=== PATIENT | male | born 1965 ===

== ENCOUNTER 2019-05-07 19:07 | Emergency (ER) | payer OTHER ==
[2019-05-07] MEDS ORDERED: 0.9 % SODIUM CHLORIDE 1,000 ML IV ONE (19:32)
--- NOTE | 2019-05-07 19:40 | ED Physician Documentation ---
Male Genitourinary Problems - HISTORIAN Historian: patient - HPI Chief Complaint: Male Urogenital Problems Additional Information: 53 year old male presents with c/o urinary urgency, incontinence, hematuria that started 3 days ago. He states that he had chills 2 days ago- he drinks a lot of tea and water; he denies any cough, congestion, nausea, vomiting, or diarrhea. Onset: days ago Duration: continues in ED Context: denies: recent surgery Severity: mild - Associated Symptoms Problems Urinating: blood in urine, frequent urination, urgency w/ urination Penile Discharge Descripiton: denies: watery Testicular Pain: none Testicular Swelling: none Penile Pain: No Penile Swelling: No Flank Pain: none - Sexual History Sexual History: non-contributory - ROS CONST: fever, chills GI/: denies: nausea, vomiting MS/SKIN/LYMPH: none CVS/RESP: none EYES/ENT: none - PAST HX Past History: hypertension Cardiac Disease: none Surgeries/Procedures: none Immunizations: UTD Allergies/Adverse Reactions: Allergies Allergy/AdvReac Type Severity Reaction Status Date / Time No Known Drug Allergies Allergy Verified 05/07/19 20:46 Home Medications: Ambulatory Orders Medication Instructions Recorded Ciprofloxacin HCl [Cipro] 500 mg PO BID #20 tablet 05/07/19 - SOCIAL HX Smoking History: less than 1 pack/day Alcohol Use: occasionally Drug Use: none - FAMILY HX Family History: none - VITAL SIGNS Vital Signs: Vital Signs Temp Pulse Resp BP Pulse Ox 101.4 F H 110 H 22 144/83 94 05/07/19 19:31 05/07/19 19:31 05/07/19 19:31 05/07/19 19:31 05/07/19 19:31 - REVIEWED ASSESSMENTS Nursing Assessment Reviewed: Yes Vitals Reviewed: Yes Progress - Progress Progress: 21:40 patient is feeling much better. ED Results Lab/Radiology - Radiology Radiology Impressions: CT ABDOMEN PELVIS HISTORY; BLOOD IN URINE TECHNIQUE: Scans through the abdomen and pelvis were the obtained without contrast. FINDINGS: The lung parenchyma and cardiovascular structures in the chest included in the study are within normal limits. Liver, spleen, gallbladder, pancreas, adrenal glands and kidneys are normal. No renal stones or hydronephrosis is seen. No periaortic, periiliac, or inguinal adenopathy is noted. Ureters and bladder are normal. Prostatic hypertrophy is seen indenting the base of the bladder. Bowel content of the abdomen and pelvis including the appendix has a normal appearance. No inflammatory process seen. 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 IMPRESSION: Unremarkable abdomen and pelvic CT. Normal appendix. Prostate hypertrophy. No obstructive uropathy or inflammatory bowel disease. - Orders Orders: ED Orders Category Date Time Status Place IV Lock 1T Care 05/07/19 19:32 Active KIDNEY STONE PROTOCOL [CT ABD & PELVIS W/O CON] Stat Exams 05/07/19 Ordered CBC/PLATELET/DIFF Routine Lab 05/07/19 19:57 Received CMP Routine Lab 05/07/19 19:57 Received URINALYSIS Routine Lab 05/07/19 19:32 Ordered 0.9 % Sodium Chloride [Normal Saline] 1,000 ml Med 05/07/19 19:32 Discontinued IV Q1H CiproFLOXacin HCL [Cipro] Med 05/07/19 20:38 Discontinued 500 mg PO NOW ONE Male Genitourinary Problems - EXAM General Appearance: no acute distress, alert Abdomen: non-tender, no organomegaly EENT: eye inspection normal, ENT inspection normal, pharynx normal, FABIENNE Neck: nml inspection Respiratory: breath sounds normal CVS: heart sounds normal, equal pulses Back: non-tender Extremities: normal range of motion Neuro/Psych: oriented X3, CN's nml as tested, motor nml, sensation nml, mood/affect nml, cognition normal Skin: warm/dry, normal color Discharge Clincal Impression: Urinary tract infection Referrals: Primary Doctor,No [Primary Care Provider] - 2 Days Additional Instructions: Take antibiotic as directed (Cipro 500 mg by mouth twice a day for 10 days) Increase water intake (try to cut out tea and soda) Follow up with PCP this week for re-evaluation Condition: Good Disposition: 01 HOME, SELF-CARE Decision to Admit: NO Decision Time: 21:40
[2019-05-07 21:55] VITALS: BP 143/78
[2019-05-08 06:15] LABS: APPEARANCE,URINE CLEAR (CLEAR); COLOR,URINE AMBER (YELLOW)
[2019-05-08 06:16] LABS: OCCULT BLOOD,URINE 2+ (NEGATIVE); PH URINE 6.5 (5.0 - 8.0); UROBILINOGEN URINE 0.2 Eu (0.2-1.0)
[2019-05-08 07:01] LABS: BASOPHILS % 0.4 % (0.0-1.5)
[2019-05-08 07:02] LABS: eGFR (Non-African) > 60
--- NOTE | 2019-05-09 11:35 | Diagnostic Imaging Report ---
[facility] \[id number] [facility] [id number] Patient Name: KY ZIEGLER Referring Physician: SANTIAGO KINGSTON Date of : 1965 Gender: M Date of Service: 05/07/2019 Exam Requested: CT ABD PELVIS W/O CO CT ABDOMEN PELVIS HISTORY; BLOOD IN URINE TECHNIQUE: Scans through the abdomen and pelvis were the obtained without contrast. FINDINGS: The lung parenchyma and cardiovascular structures in the chest included in the study are within normal limits. Liver, spleen, gallbladder, pancreas, adrenal glands and kidneys are normal. No renal stones or hydronephrosis is seen. No periaortic, periiliac, or inguinal adenopathy is noted. Ureters and bladder are normal. Prostatic hypertrophy is seen indenting the base of the bladder. Bowel content of the abdomen and pelvis including the appendix has a normal appearance. No inflammatory process seen. 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 I MPRESSION: Unremarkable abdomen and pelvic CT. Normal appendix. Prostate hypertrophy. No obstructive uropathy or inflammatory bowel disease. Note: Total DLP 355.21 milligray/cm N
== END 2019-05-07 21:51 | disposition home or self-care (01) ==
LOC: ED 19:07
DX: N39.0 Urinary tract infection, site not specified (principal); B96.20 Unspecified Escherichia coli [E. coli] as the cause of diseases classified elsewhere
CPT/HCPCS: 74176; 80053; 81002; 85025; 87086; 87186; 96360; 99282; 99284; J7030; S1016